=== PATIENT | female | born 1955 | race Hispanic/Latino ===

== ENCOUNTER 2020-09-17 06:50 | Emergency (ER) | payer MEDICARE, OTHER ==
[2020-09-17 14:18] LABS: SARS-CoV-2 MS2 Positive; SARS-CoV-2 N Gene Negative; SARS-CoV-2 S Gene Negative; SARS-CoV-2 by NAA Not Detected (NotDetected); SARS-CoV-2 orf1ab Negative
[2020-09-17] MEDS ORDERED: EPINEPHrine 1 MG/10 ML Abboject SYRINGE ONE (15:12)
== END 2020-09-17 07:21 | disposition expired ==
LOC: ERS 06:50 → EDBD 06:50 → ERS 07:21
DX: I46.9 Cardiac arrest, cause unspecified (principal)
CPT/HCPCS: 36680; 87635; 92950; J0171; U0003